=== PATIENT | female | born 1955 | race Caucasian/White ===

== ENCOUNTER → 2016-09-11 | Outpatient (CLI) | payer BC | LOC: WI 08:53 | PROVIDERS: ATTEND Obstetrics & Gynecology Gynecology | DX: Z12.31 Encounter for screening mammogram for malignant neoplasm of breast (principal); Z98.82 Breast implant status | CPT/HCPCS: 77067; G0202 ==

== ENCOUNTER → 2017-11-06 | Outpatient (CLI) | payer BC ==
--- NOTE | 2017-11-07 15:53 | WOMENS IMAGING REPORT ---
EXAM DESCRIPTION: 3D SCREENING MAMMO BILAT COMPLETED DATE/TIME: 11/06/2017 7:30 am REASON FOR STUDY: SCREENING MAMMO Z12.31 ENCNTR SCREEN MAMMOGRAM FOR MALIGNANT NEOPLASM OF MADHAV COMPARISON: Multiple since 2008 TECHNIQUE: Standard craniocaudal and mediolateral oblique views of each breast recorded using digita l acquisition and breast tomosynthesis. Additional "push-back craniocaudal and mediolateral oblique images acquired. LIMITATIONS: None. FINDINGS: IMPLANTS: Bilateral subglandular implants. Findings present which are benign by mammographic criteria. No suspicious masses, calcifications or a rchitectural distortion. Read with the assistance of CAD. .[facility] - R2 Cenova Version 1.3 .[facility] - R2 Cenova Version 1.3 .[facility] - R2 Cenova Version 2.4 .[facility] - R2 Cenova Version 2.4 .[facility] - R2 Shipping Support Version 9.2 Benign mammographic findings may include one or more of the following: Smooth masses, popcorn/rim/co arse calcifications, asymmetries, post-procedure changes, and lesions with long-standing stability. IMPRESSION: BENIGN MAMMOGRAPHIC FINDINGS. BIRADS 2 BREAST DENSITY: b. There are scattered areas of fibroglandular density. BIRAD: 2 BENIGN FINDING(S) RECOMMENDATION: ROUTINE SCREENING Please continue yearly bilateral screening mammography/tomosynthesis in October 2018 COMMENT: The patient has been notified of the results by letter per [place] requirements. Additional no tification policies are in place for contacting patient with suspicious or incomplete findings. Quality ID #225: The [employer] recommends an annual screening mammogram for women aged 40 years or over. This facility utilizes a reminder system to ensure that all patients receive reminder letters, and/or direct phone calls for appointments. This includes reminders for routine scr eening mammograms, diagnostic mammograms, or other Breast Imaging Interventions when appropriate. Th is patient will be placed in the appropriate reminder system. The [employer] (ACR) has developed recommendations for screening MRI of the breast s in certain patient populations, to be used in conjunction with mammography. Breast MRI surveillanc e may be appropriate for women with more than 20% lifetime risk of developing breast cancer as deter mined by genetic testing, significant family history of the disease, or history of mantle radiation f or Hodgkins Disease. ACR Practice Guidelines 2008. DBT Technology DBT is a type of tomographic mammography. With conventional mammography, overlapping breast tissue ma y make lesions difficult to detect, even with good compression. DBT uses an x-ray tube that rotates a round the breast, taking images at different angles. These images are then combined to create thin sl ices of the breast that the radiologist can view as a 3D reconstruction. The Hologic unit can perform full-field digital mammograms (2D imaging); or DBT (3D imaging); or both, in a combination mode that quickly performs both the mammogram and the tomosynthesis scan while the breast is still compressed. PQRS 6045F: Fluoroscopic imaging is not utilized for breast tomosynthesis. TECHNICAL DOCUMENTATION: FINDING NUMBER: (1) ASSESSMENT: (1) JOB ID: [id number] [employer]- All Rights Reserved Reading location - IP/workstation name: [email or web address]
== END ==
LOC: WI 07:13
PROVIDERS: ATTEND Obstetrics & Gynecology Gynecology
DX: Z12.31 Encounter for screening mammogram for malignant neoplasm of breast (principal)
CPT/HCPCS: 77063; 77067

== ENCOUNTER → 2018-11-19 | Outpatient (CLI) | payer BC ==
--- NOTE | 2018-11-22 15:40 | WOMENS IMAGING REPORT ---
EXAM DESCRIPTION: 3D SCREENING MAMMO BILAT COMPLETED DATE/TIME: 11/19/2018 7:22 am REASON FOR STUDY: Z12.31 ENCOUNTER FOR SCREENING MAMMOGRAM FOR MALIGNANT NEOPLASM OF BREAST Z12.31 ENCNTR SCREEN MAMMOGRAM FOR MALIGNANT NEOPLASM OF MADHAV COMPARISON: Multiple since 2008 EXAM PARAMETERS: Standard craniocaudal and mediolateral oblique views of each breast recorded using digital acquisition and breast tomosynthesis. Additional "push-back craniocaudal and mediolateral ob lique images acquired. Read with the assistance of CAD. .[facility] - R2 Family Service Aide Version 9.2 LIMITATIONS: None. FINDINGS: IMPLANTS: Bilateral subglandular implants. Findings present which are benign by mammographic criteria. No suspicious masses, calcifications or a rchitectural distortion. Benign mammographic findings may include one or more of the following: Smooth masses, popcorn/rim/co arse calcifications, asymmetries, post-procedure changes, and lesions with long-standing stability. IMPRESSION: BENIGN MAMMOGRAPHIC FINDINGS. BIRADS 2 BREAST DENSITY: a. The breasts are almost entirely fatty. BIRAD: ASSESSMENT: 2 BENIGN FINDING(S) RECOMMENDATION: ROUTINE SCREENING COMMENT: The patient has been notified of the results by letter per MQSA requirements. Additional no tification policies are in place for contacting patient with suspicious or incomplete findings. Quality ID #225: The [employer] recommends an annual screening mammogram for women aged 40 years or over. This facility utilizes a reminder system to ensure that all patients receive reminder letters, and/or direct phone calls for appointments. This includes reminders for routine scr eening mammograms, diagnostic mammograms, or other Breast Imaging Interventions when appropriate. Th is patient will be placed in the appropriate reminder system. TECHNICAL DOCUMENTATION: FINDING NUMBER: (1) ASSESSMENT: (1) JOB ID: [id number] [employer]- All Rights Reserved Reading location - IP/workstation name: [facility]
== END ==
LOC: WI 06:54
PROVIDERS: ATTEND Obstetrics & Gynecology Gynecology
DX: Z12.13 Encounter for screening for malignant neoplasm of small intestine (principal); Z98.82 Breast implant status
CPT/HCPCS: 77063; 77067

== ENCOUNTER → 2019-09-28 | Outpatient (CLI) | payer BC ==
[2019-09-28 10:54] LABS: ABSOLUTE EOSINOPHILS # (AUTO) 0.1 10^3/uL (0.0-0.6); ABSOLUTE LYMPHOCYTES (AUTO) 0.7 10^3/uL (0.5-4.7); ABSOLUTE MONOCYTES (AUTO) 0.5 10^3/uL (0.1-1.4); ABSOLUTE NEUT (AUTO) 4.8 10^3/uL (1.7-8.2); BASOPHILS % (AUTO) 0.6 % (0-2); EOSINOPHILS % (AUTO) 1.8 % (0-6); HEMATOCRIT 30.6 % (36.0-47.0); HEMOGLOBIN 10.6 g/dL (12.0-15.5); LYMPHOCYTES % (AUTO) 11.5 % (13-45); MEAN CORPUSCULAR HEMOGLOBIN 30.4 pg (27.0-33.4); MEAN CORPUSCULAR HGB CONC 34.5 g/dL (32.0-36.0); MEAN CORPUSCULAR VOLUME 88 fl (80-97); MONOCYTES % (AUTO) 8.3 % (3-13); PLATELET COUNT 347 10^3/uL (150-450); RED BLOOD COUNT 3.48 10^6/uL (3.72-5.28); RED CELL DISTRIBUTION WIDTH 13.5 % (11.5-14.0); SEGMENTED NEUTROPHILS % (AUTO) 77.8 % (42-78); TOTAL CELLS COUNTED % (AUTO) 100 %; WHITE BLOOD COUNT 6.1 10^3/uL (4.0-10.5)
[2019-09-28 11:09] LABS: ALBUMIN 3.9 g/dL (3.5-5.0); ALKALINE PHOSPHATASE 106 U/L (38-126); AMYLASE 83 U/L (30-110); ANION GAP 11 (5-19); ASPARTATE AMINO TRANSFERASE 43 U/L (14-36); BILIRUBIN,TOTAL 0.4 mg/dL (0.2-1.3); BLOOD UREA NITROGEN 47 mg/dL (7-20); CALCIUM 8.8 mg/dL (8.4-10.2); CARBON DIOXIDE 22 mmol/L (22-30); CHLORIDE 99 mmol/L (98-107); GLUCOSE 103 mg/dL (75-110); POTASSIUM 4.4 mmol/L (3.6-5.0)
--- NOTE | 2019-09-28 13:17 | RADIOLOGY REPORT (SQ) ---
EXAM DESCRIPTION: CT ABD/PELVIS ORAL ONLY IMAGES COMPLETED DATE/TIME: 09/28/2019 12:53 pm REASON FOR STUDY: ABD PAIN (R10.84), DIVERTICULOSIS (K57.30) R10.84 GENERALIZED ABDOMINAL PAIN K57. 30 DVRTCLOS OF LG INT W/O PERFORATION OR ABSCESS W/O BLE COMPARISON: None. TECHNIQUE: CT scan of the abdomen and pelvis performed without intravenous contrast. Patient was gi leona oral contrast. Images reviewed with lung, soft tissue, and bone windows. Reconstructed coronal an d sagittal MPR images reviewed. All images stored on PACS. All CT scanners at this facility use dose modulation, iterative reconstruction, and/or weight based d osing when appropriate to reduce radiation dose to as low as reasonably achievable (ALARA). [facility]: Dose Right [facility]: CareDose [facility]: Dose Right [facility]: Teradose 4D [facility]: Smart Technologies RADIATION DOSE: CT Rad equipment meets quality standard of care and radiation dose reduction techniq ues were employed. CTDIvol: 6.7 mGy. DLP: 346 mGy-cm.mGy. LIMITATIONS: None. FINDINGS: LOWER CHEST: No acute findings. Scattered three-vessel coronary atherosclerosis. NON-CONTRASTED LIVER, SPLEEN, ADRENALS: Evaluation limited by lack of IV contrast. No identified sign ificant masses. PANCREAS: No masses. No peripancreatic inflammatory changes. GALLBLADDER: No identified stones by CT criteria. No inflammatory changes to suggest cholecystitis. RIGHT KIDNEY AND URETER: No suspicious masses. Assessment limited by lack of IV contrast. No signif icant calcifications. Moderate hydroureteronephrosis to the level of the mid ureter. LEFT KIDNEY AND URETER: No suspicious masses. Assessment limited by lack of IV contrast. Asymmetrica lly small kidney with cortical thinning . No significant calcifications. Severe hydroureteronephros is to the level of the distal ureter. There is a ill-defined soft tissue mass within this region carmelo suring approximately 5.5 by it is 5.4 cm (series 2, image 67). AORTA AND RETROPERITONEUM: Aortoiliac atherosclerosis without aneurysm. There is retroperitoneal ill -defined soft tissue and adenopathy. For reference ill-defined soft tissue at the level of the left para-aortic region measuring up to 17 mm in short axis (series 2, image 46). BOWEL AND PERITONEAL CAVITY: Postsurgical changes from prior gastric bypass. No evidence of intestin al obstruction. There are scattered abnormal appearing areas of soft tissue density along the left a nterior abdomen and left deep pelvis. Left anterior abdominal lesion measures approximately 4.6 by 3.7 cm (series 2, image 62). Left deep pelvic soft tissue measures 5.5 x 5.4 cm (series 2, image 67) . Questionable additional soft tissue mass along the right ascending colon (series 2, image 49). APPENDIX: Not clearly identified. PELVIS, BLADDER, AND ABDOMINAL WALL: Asymmetric left posterolateral bladder wall thickening abutting the 5.5 x 5.4 cm left deep pelvic soft tissue mass. Iliac chain adenopathy although evaluation limi jennie secondary to lack of intravenous contrast. Left inguinal adenopathy, largest measuring 3.2 x 2.1 cm (series 2, image 70). Moderate formed stool within the rectal vault. Likely trace pelvic free f luid. BONES: No acute bony abnormality. No discrete lytic or blastic osseous lesions. Lower lumbar facet arthropathy. Grade 1 anterolisthesis of L4 on 5. OTHER: No other significant finding. IMPRESSION: 1. Moderate to severe bilateral hydroureteronephrosis to the level of the mid/distal ur eters. Multiple areas of abnormal soft tissue within the left pelvis and anterior abdomen, largest m easuring 5.5 x 5.4 cm highly suspicious for malignancy. Additional retroperitoneal, left inguinal an d iliac adenopathy most compatible with additional metastatic disease. Evaluation somewhat limited w ithout intravenous contrast 2. Additional chronic findings as above. Findings conveyed to Dr. Rust At 1309 hours on 09/28/2019 COMMENT: Quality ID # 436: Final reports with documentation of one or more dose reduction techniques (e.g., Automated exposure control, adjustment of the mA and/or kV according to patient size, use of iterative reconstruction technique) TECHNICAL DOCUMENTATION: JOB ID: [id number] 2010 [email or web address]- All Rights Reserved Reading location - IP/workstation name: [email or web address]
== END ==
LOC: RAD 09:58
PROVIDERS: ATTEND Internal Medicine Gastroenterology
DX: R10.84 Generalized abdominal pain (principal); K57.30 Diverticulosis of large intestine without perforation or abscess without bleeding
CPT/HCPCS: 36415; 74176; 80048; 80076; 82150; 83690; 85025

== ENCOUNTER → 2019-09-28 | Outpatient (CLI) | payer BC | LOC: LAB 10:40 | PROVIDERS: ATTEND Internal Medicine Gastroenterology | DX: Z53.9 Procedure and treatment not carried out, unspecified reason (principal) ==

== ENCOUNTER 2019-11-26 09:58 | Day surgery (SDC) | payer BC ==
[2019-11-22 11:11] LABS: HEMATOCRIT 31.2 % (36.0-47.0); HEMOGLOBIN 10.4 g/dL (12.0-15.5); MEAN CORPUSCULAR HEMOGLOBIN 29.9 pg (27.0-33.4); MEAN CORPUSCULAR HGB CONC 33.4 g/dL (32.0-36.0); MEAN CORPUSCULAR VOLUME 90 fl (80-97); PLATELET COUNT 306 10^3/uL (150-450); RED BLOOD COUNT 3.48 10^6/uL (3.72-5.28); RED CELL DISTRIBUTION WIDTH 16.8 % (11.5-14.0); WHITE BLOOD COUNT 2.5 10^3/uL (4.0-10.5)
[2019-11-22 11:33] LABS: ANION GAP 7 (5-19); BLOOD UREA NITROGEN 11 mg/dL (7-20); CALCIUM 8.8 mg/dL (8.4-10.2); CARBON DIOXIDE 28 mmol/L (22-30); CHLORIDE 102 mmol/L (98-107); GLUCOSE 58 mg/dL (75-110); POTASSIUM 3.7 mmol/L (3.6-5.0)
--- NOTE | 2019-11-22 11:52 | RADIOLOGY REPORT (SQ) ---
EXAM DESCRIPTION: CHEST PA/LATERAL IMAGES COMPLETED DATE/TIME: 11/22/2019 11:35 am REASON FOR STUDY: PRE-OP COMPARISON: 10/13/2014 EXAM PARAMETERS: NUMBER OF VIEWS: two views TECHNIQUE: Digital Frontal and Lateral radiographic views of the chest acquired. RADIATION DOSE: NA LIMITATIONS: none FINDINGS: LUNGS AND PLEURA: No opacities, masses or pneumothorax. No pleural effusion. MEDIASTINUM AND HILAR STRUCTURES: No masses or contour abnormalities. HEART AND VASCULAR STRUCTURES: Heart normal size. No evidence for failure. Vascular calcifications. BONES: No acute findings. HARDWARE: Bilateral breast prostheses. Partially visualized bilateral percutaneous nephrostomy becky ters. OTHER: No other significant finding. IMPRESSION: No evidence of acute cardiopulmonary process. TECHNICAL DOCUMENTATION: JOB ID: [id number] 2010 [employer]- All Rights Reserved Reading location - IP/workstation name: [email or web address]
--- NOTE | 2019-11-22 11:53 | EKG REPORT ---
SEVERITY:- ABNORMAL ECG - SINUS RHYTHM PROBABLE ANTEROSEPTAL INFARCT, AGE INDETERM : Confirmed by: Ko Salazar MD 22-Nov-2019 11:53:10
[~2019-11-26 09:58] MED LIST: CEFAZOLIN 2 GM/D5W RTU 2 GM/50 ML RTUPB IV PRN; LACTATED RINGERS 1000 ML IV PRN; LIDOCAINE 0.5% INJ-PF (5 MG/ML) 50 ML SDV SUBCUT PRN
[2019-11-26] MEDS ORDERED: CEFAZOLIN 2 GM/D5W RTU 2 GM/50 ML RTUPB IV ONE (10:23)
[2019-11-26] MEDS ORDERED: KETAMINE HCL INJ 500 MG/10 ML VIAL ONE (15:18)
[2019-11-26] MEDS ORDERED: MIDAZOLAM 2 MG/2 ML INJ ONE (15:18)
[2019-11-26] MEDS ORDERED: FENTANYL CITRATE INJ/PF 100 MCG/2 ML AMPUL ONE (15:18)
[2019-11-26] MEDS ORDERED: PROPOFOL INJ 200 MG/20 ML VIAL IV ONE (15:18)
[2019-11-26] MEDS ORDERED: LIDOCAINE 1% INJ-PF (10 MG/ML) 30 ML SDV ONE (15:19)
[2019-11-26] MEDS ORDERED: BUPIVACAINE HCL 0.25 % INJ/PF (2.5 MG/1 ML) 30 ML VIAL ONE (15:20)
[2019-11-26] MEDS ORDERED: DIPHENHYDRAMINE HCL 50 MG/ML VIAL IV PRN (15:57)
[2019-11-26] MEDS ORDERED: ONDANSETRON HCL INJ/PF 4 MG/2 ML SDV IV PRN (15:57)
[2019-11-26] MEDS ORDERED: PROMETHAZINE HCL INJ 25 MG/1 ML VIAL IV PRN ×2 (15:57)
--- NOTE | 2019-11-26 16:55 | Discharge Summary ---
Discharge Summary (SDC) - Discharge Final Diagnosis: Cervical cancer Date of Surgery: 11/26/19 Discharge Date: 11/26/19 Condition: Stable Forms: ASU Anesthesia D/C Instruction, Discharge POC-Surgical Service Treatment or Instructions: Discharge home. Diet as tolerated. Activity: Nonstrenuous. Follow-up with me as needed. Okay to remove bandage and shower on Friday. Referrals: VAIBHAV JUDD MD [ACTIVE STAFF] - 12/01/19 10:15 am Discharge Diet: As Tolerated Respiratory Treatments at Home: Deep Breathing/Coughing, Incentive Spirometer Discharge Activity: Balance Activity w/Rest, No Lifting Over 10 Pounds, No tub bath Home Care Assistance: None Needed, Provided by Family Report the Following to Your Physician Immediately: Shortness of Breath, Vomiting, Increase in Pain, Fever over 101 Degrees, Unusual Bleeding, Redness, Swelling, Drainage-Foul Smelling, IV Site Infection Signs
--- NOTE | 2019-11-26 17:10 | RADIOLOGY REPORT (SQ) ---
EXAM DESCRIPTION: CHEST SINGLE VIEW IMAGES COMPLETED DATE/TIME: 11/26/2019 4:59 pm REASON FOR STUDY: post op pacu COMPARISON: 11/22/2019 EXAM PARAMETERS: NUMBER OF VIEWS: One view. TECHNIQUE: Single frontal radiographic view of the chest acquired. RADIATION DOSE: NA LIMITATIONS: None. FINDINGS: LUNGS AND PLEURA: No opacities, masses or pneumothorax. No pleural effusion. MEDIASTINUM AND HILAR STRUCTURES: No masses. Contour normal. HEART AND VASCULAR STRUCTURES: Heart normal in size. Normal vasculature. BONES: No acute findings. HARDWARE: Left anterior chest wall Port-A-Cath terminates in the region of the superior vena cava. OTHER: No other significant finding. IMPRESSION: Port-A-Cath terminates in the region of the superior vena cava. No evidence of acute ca rdiopulmonary abnormality. TECHNICAL DOCUMENTATION: JOB ID: [id number] 2010 [employer]- All Rights Reserved Reading location - IP/workstation name: [email or web address]
--- NOTE | 2019-11-26 17:53 | RADIOLOGY REPORT (SQ) ---
EXAM DESCRIPTION: CHEST SINGLE VIEW IMAGES COMPLETED DATE/TIME: 11/26/2019 4:51 pm REASON FOR STUDY: PORT PLACEMENT COMPARISON: None. EXAM PARAMETERS: NUMBER OF VIEWS: One view. TECHNIQUE: Single frontal radiographic view of the chest acquired. RADIATION DOSE: NA LIMITATIONS: None. FINDINGS: LUNGS AND PLEURA: No opacities, masses or pneumothorax. No pleural effusion. MEDIASTINUM AND HILAR STRUCTURES: No masses. Contour normal. HEART AND VASCULAR STRUCTURES: Heart normal in size. Normal vasculature. BONES: No acute findings. HARDWARE: There is injection port on the left. The tip of the catheter is in the superior vena cava. OTHER: No other significant finding. IMPRESSION: Injection port placement. TECHNICAL DOCUMENTATION: JOB ID: [id number] 2010 [employer]- All Rights Reserved Reading location - IP/workstation name: [email or web address]
[2019-11-26 19:06] VITALS: BP 179/98
--- NOTE | 2019-11-29 08:19 | Operative Report ---
Nonrecallable Operative Report DATE OF SURGERY: 11/26/19 PREOPERATIVE DIAGNOSIS: Cervical cancer POSTOPERATIVE DIAGNOSIS: 1. Cervical cancer. 2. Slightly tortuous innominate vein OPERATION: 1. Ultrasound-guided central venous puncture. 2. Superior venacavogram. 3. Insertion of left internal jugular vein Mediport. SURGEON: VAIBHAV JUDD ANESTHESIA: LMAC TISSUE REMOVED OR ALTERED: None COMPLICATIONS: difficulty with getting the wire to traverse the innominate vein, into the superior vena cava. Secondary to this, a superior venacavogram was shot to visualize the anatomy. ESTIMATED BLOOD LOSS: Minimal PROCEDURE: Drains/implants: Left internal jugular vein Mediport. Procedure in detail: After informed consent was obtained, she was brought into the operating room and laid in the Trendelenburg position. The area of the neck and chest were prepped and draped in a normal sterile fashion. An ultrasound was used to visualize the left internal jugular vein. It was compressible with normal flow. Under direct ultrasonic guidance, the left internal jugular vein was cannulated using the supplied access needle. Dark venous, nonpulsatile blood was returned in the syringe. The wire was inserted easily. The wire was confirmed to be within the lumen of the vein using the ultrasound, as well as fluoroscopy. Picture documentation was placed on the chart. On fluoroscopy, the wire was found to be curling back on itself. Manipulation of the wire was undertaken using the torque device. It was difficult to get the wire to fall into the superior vena cava. Secondary to this, a sheath was inserted over the wire, and a superior venacavogram was shot with 20 cc of Isovue contrast. Isovue contrast was injected. The left internal jugular vein, innominate vein, and superior vena cava were easily visualized. There was some tortuosity of the veins, making their traverse slightly difficult. There was no evidence of stricture or mural thrombus on venacavogram. After visualization of the anatomy, and through the use of a torque device, the wire was manipulated into the superior vena cava successfully. Once the wire was found to lie within the SVC, a separate incision was created for the Mediport hub. The catheter was then tunneled from the hub site to the needle insertion site. Next, the dilator and breakaway sheath were inserted over the wire. This was done under fluoroscopic guidance. Next, the catheter was inserted into the breakaway sheath. The breakaway sheath was cracked and pulled away, leaving the catheter within the SVC. The catheter was pulled back to an appropriate level, trimmed to length, and attached to the Mediport hub. The hub was then buried in the pocket. The hub was sutured to the chest wall using 3-0 Vicryl suture in simple interrupted fashion. Next, the subcutaneous tissues were closed using 3-0 Vicryl suture in simple running fashion. The ov erlying skin was closed in 4-0 Vicryl Rapide suture in subcuticular fashion. The Mediport was then accessed and flushed with heparinized saline. The catheter flushed and aspirated easily. Dressings were then placed, and the procedure was concluded. All sponge, instrument, and needle counts were correct x2. Condition: Fair.
== END 2019-11-26 18:25 | disposition home or self-care (01) ==
LOC: OROUT 09:58
PROVIDERS: ATTEND Surgery
DX: C53.0 Malignant neoplasm of endocervix (principal); G89.3 Neoplasm related pain (acute) (chronic); Z88.5 Allergy status to narcotic agent; I10 Essential (primary) hypertension; E03.9 Hypothyroidism, unspecified; Z03.818 Encounter for observation for suspected exposure to other biological agents ruled out
CPT/HCPCS: 36561; 93005; 36415; 85027; 87635; 80048; 71046; 71045; 77001; 93010; J2250; J3490; J2704; J0690; J1642; C9803; 532; C1752; C1788; J3010; Q9967

== ENCOUNTER → 2020-03-29 | Outpatient (CLI) | payer BC, OTHER ==
--- NOTE | 2020-03-29 13:48 | RADIOLOGY REPORT (SQ) ---
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 TECHNIQUE: CT scan of the chest performed using helical scanning technique with dynamic intravenous contrast injection. Images reviewed with lung, soft tissue and bone windows. Reconstructed coronal and sagittal MPR and MIP images reviewed. All images stored on PACS. All CT scanners at this facility use dose modulation, iterative reconstruction, and/or weight based d osing when appropriate to reduce radiation dose to as low as reasonably achievable (ALARA). [facility]: Dose Right [facility]: CareDose [facility]: Dose Right [facility]: Teradose 4D [facility]: Siemens CONTRAST TYPE AND DOSE: 61 mL Omnipaque 350- low osmolar. RENAL FUNCTION: Creatinine 1 milligram/deciliter. RADIATION DOSE: CT Rad equipment meets quality standard of care and radiation dose reduction techniq ues were employed. CTDIvol: 4.4 - 4.6 mGy. DLP: 649 mGy-cm. LIMITATIONS: None. FINDINGS: LUNGS AND PLEURA: The trachea and main bronchi are patent. The calcified nodule in the ri ght middle lobe (image 41 of series 2) is unchanged There is no consolidation, ground-glass opacifica tion, pleural effusion or pneumothorax. HILAR AND MEDIASTINAL STRUCTURES: No adenopathy or mass. HEART AND VASCULAR STRUCTURES: There is atherosclerotic calcification of the thoracic aorta and coron dipika arteries. There is no cardiomegaly or pericardial effusion. HARDWARE: The tip of the port catheter terminates within the SVC. UPPER ABDOMEN: Refer to the separate report of the CT of the abdomen. THYROID AND OTHER SOFT TISSUES: Bilateral prepectoral breast implants. There is no adenopathy or mas s. BONES: No fracture or osseous lesion. OTHER: No other findings. IMPRESSION: No acute cardiopulmonary process or evidence of metastatic disease. TECHNICAL DOCUMENTATION: JOB ID: [id number] Quality ID # [id number]: Final reports with documentation of one or more dose reduction techniques (e.g., Au tomated exposure control, adjustment of the mA and/or kV according to patient size, use of iterative reconstruction technique) 2010 [employer]- All Rights Reserved Reading location - IP/workstation name: [email or web address]Bin[facility]
--- NOTE | 2020-03-29 14:10 | RADIOLOGY REPORT (SQ) ---
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 TECHNIQUE: CT scan of the abdomen and pelvis performed using helical scanning technique with dynamic intravenous contrast injection. No oral contrast. Images reviewed with lung, soft tissue, and bone windows. Reconstructed coronal and sagittal MPR images reviewed. Delayed images for evaluation of the urinary system also acquired. All images stored on PACS. All CT scanners at this facility use dose modulation, iterative reconstruction, and/or weight based d osing when appropriate to reduce radiation dose to as low as reasonably achievable (ALARA). [facility]: Dose Right [facility]: CareDose [facility]: Dose Right [facility]: Teradose 4D [facility]: [employer] CONTRAST TYPE AND DOSE: Contrast/concentration: Isovue 350.00 mmol/ml; Total Contrast Delivered: 61. 0 ml; Total Saline Delivered: 65.0 ml RENAL FUNCTION: Creatinine 1 milligram/deciliter. LIMITATIONS: None. FINDINGS: LOWER CHEST: Refer to the separate report of the CT of the chest. LIVER: The hypodense lesion within segment 6 of the liver (image 27 of series 3) has decreased in siz e since the prior CT and it measures up to 14 mm compared to 18 mm. The subcentimeter hypodense lesi on within segment 4 of the liver (image 25 of series 3) is unchanged. There is no new or enlarging h epatic mass. SPLEEN: No splenomegaly or splenic mass. PANCREAS: No acute gross abnormality of the pancreas. GALLBLADDER: No abnormality that is apparent on CT. ADRENAL GLANDS: No mass or asymmetry. RIGHT KIDNEY AND URETER: There is a percutaneous nephroureteral stent in place ; the proximal loop of the stent is formed within the renal pelvis and the distal loop is formed within the urinary bladder ; despite appropriate position of the stent the renal calices are dilated. There is no solid mass. LEFT KIDNEY AND URETER: The kidney is atrophic. The distal loop of the percutaneous nephrostomy cath eter projects within the renal pelvis. There is no hydronephrosis or solid mass. AORTA AND VESSELS: Atherosclerotic calcification of the abdominal aorta and iliac arteries. RETROPERITONEUM: No retroperitoneal adenopathy, hemorrhage or mass. BOWEL AND PERITONEAL CAVITY: Re- demonstration of postoperative findings consistent with prior gastri c bypass. The rectum is distended with fecal material. There is no bowel obstruction, bowel wall th ickening or pericolonic/ perienteric inflammation. The left paramedian mass that abuts the abdominal wall (image 65 of series 3) has decreased in size and it measures 18 mm in transverse diameter doretha red to 36 mm on the prior CT. The soft tissue around the surgical clips in the left hemipelvis also appears to have decreased in size since the prior CT. APPENDIX: Unable to identify the appendix. PELVIS: The uterus is surgically absent. ABDOMINAL WALL: No mass or hernia. BONES: Degenerative spondylosis and facet arthropathy of the lumbar spine with grade 1 anterolisthesi s of L3 relative to L4 and of L4 relative to L5. There is no fracture or osseous lesion. OTHER: No other findings. IMPRESSION: 1. Findings as detailed above consistent with continued favorable response to therapy gi leona the decrease in the size of the hypodense lesion within segment 6 of the liver, the left paramedi an mass that abuts the abdominal wall, the mass around the surgical clips in the left hemipelvis and of the preciously described retroperitoneal adenopathy. 2. Despite proper position of the right-sided percutaneous nephroureteral stent the renal calices ar e dilated - correlate with the functionality of the stent. TECHNICAL DOCUMENTATION: JOB ID: [id number] Quality ID # [id number]: Final reports with documentation of one or more dose reduction techniques (e.g., Au tomated exposure control, adjustment of the mA and/or kV according to patient size, use of iterative reconstruction technique) 2010 [employer]- All Rights Reserved Reading location - IP/workstation name: [email or web address]
== END ==
LOC: RAD 08:27
PROVIDERS: ATTEND Internal Medicine
DX: C53.0 Malignant neoplasm of endocervix (principal)
CPT/HCPCS: 71260; 74177; 82565